=== PATIENT | male | born 1995 | race Hispanic/Latino ===

== ENCOUNTER 2019-02-01 11:22 | Emergency (ER) | payer BC, OTHER ==
[2019-02-01] MEDS ORDERED: LIDOCAINE 1% MPF 5 ML VIAL ONE ×2 (11:48→13:05)
[2019-02-01] MEDS ORDERED: BUPIVACAINE 0.5% PF 10 ML VIAL ONE (11:48)
[2019-02-01] MEDS ORDERED: TETANUS & DIPHTHERIA TOX,ADULT 0.5 ML VIAL ONE (11:49)
--- NOTE | 2019-02-01 12:47 | RAD REPORT ---
EXAM DESCRIPTION: RAD - Hand Right 3 View - 02/01/2019 12:43 pm CLINICAL HISTORY: PAIN COMPARISON: No comparisons FINDINGS: Tuft fracture seen distal aspect of the first digit. No additional fracture or subluxation .
[2019-02-01] MEDS ORDERED: CEFAZOLIN SODIUM 1 GM/VIAL ONE (13:04)
--- NOTE | 2019-02-01 14:12 | ER ---
Nurse's Notes [facility] Name: Donald Roman Age: 23 yrs Sex: Male : 1995 Arrival Date: 02/01/2019 Time: 11:26 Bed 8 Private MD: Unknown, Unknown Diagnosis: Laceration without foreign body of right thumb with damage to nail;Displaced fracture of distal phalanx of right thumb-tuft fracture Presentation: 02/01 11:30 Presenting complaint: Patient states: i smashed my finger last night and the sliding tw2 door on the closet smashed my finger, its throbbing worse and it might need stitches , the nail on my thumb is still there but it is pretty bruised. Presenting complaint: "around 7:15 pm last night this happened". Transition of care: patient was not received from another setting of care. Onset of symptoms was February 01, 2019. Risk Assessment: Do you want to hurt yourself or someone else? Patient reports no desire to harm self or others. Initial Sepsis Screen: Does the patient meet any 2 criteria? No. Patient's initial sepsis screen is negative. Does the patient have a suspected source of infection? No. Patient's initial sepsis screen is negative. Care prior to arrival: None. 11:30 Method Of Arrival: Ambulatory tw2 11:30 Acuity: MUKUND 4 tw2 Triage Assessment: 11:32 General: Appears in no apparent distress. Behavior is calm, cooperative, appropriate tw2 for age. Pain: Complains of pain in dorsal aspect of distal phalanx of right thumb and palmar aspect of distal phalanx of right thumb. Musculoskeletal: Circulation, motion, and sensation intact. Range of motion: intact in all extremities. Injury Description: Crush injury was sustained 12-24 hours ago. Historical: - Allergies: 11:32 No Known Allergies; tw2 - Home Meds: 11:32 None [Active]; tw2 - PMHx: 11:32 None; tw2 - PSHx: 11:32 None; tw2 - Immunization history:: Last tetanus immunization: unknown. - Social history:: Smoking status: . - Ebola Screening: : Patient denies travel to an Ebola-affected area in the 21 days before illness onset. Screenin:50 Abuse screen: Denies threats or abuse. Nutritional screening: No deficits noted. tw2 Tuberculosis screening: No symptoms or risk factors identified. Fall Risk None identified. Assessment: 11:35 General: Appears in no apparent distress. uncomfortable, Behavior is cooperative, bp appropriate for age, anxious. Pain: Complains of pain in right thumb. Neuro: No deficits noted. Cardiovascular: No deficits noted. Respiratory: No deficits noted. GI: No signs and/or symptoms were reported involving the gastrointestinal system. : No signs and/or symptoms were reported regarding the genitourinary system. EENT: No deficits noted. Derm: No deficits noted. Musculoskeletal: No deficits noted. Injury Description: Crush injury sustained to right thumb. 12:58 Reassessment: PROVIDER AT B/S FOR INJURY EVAL. bp 14:00 Reassessment: LAC REPAIR COMPLETED, NO BLEEDING NOTED. bp 14:25 Reassessment: PT D/C HOME AMBULATORY, DX WITH FINGER LACERATION. bp Vital Signs: 11:32 BP 112 / 88; Pulse 102; Resp 17; Temp 97.7(TE); Pulse Ox 97% on R/A; Weight 65.77 kg tw2 (R); Pain 8/10; 12:58 BP 150 / 108; Pulse 72; Resp 16; Pulse Ox 99% ; bp 14:31 BP 154 / 110; Pulse 72; Resp 16; Temp 98; Pulse Ox 97% ; bp ED Course: 11:26 Patient arrived in ED. ag5 11:27 Unknown, Unknown is Private Physician. ag5 11:32 Triage completed. tw2 11:32 Arm band placed on. tw2 11:33 Bed in low position. Call light in reach. tw2 11:42 [facility] kb 11:42 Fernandez Wu MD is Attending Physician. kb 11:45 Ralph Lewis, SHIRA is Primary Nurse. bp 12:43 Hand Right 3 View XRAY In Process Unspecified. EDMS 14:25 Patient did not have IV access during this emergency room visit. bp 14:25 Assist provider with laceration repair on right thumb that was 2.5 cm. or less using bp sutures. Set up tray. Performed by Rosi WYMAN Dressed with Neosporin, Patient tolerated well. Administered Medications: 11:55 Drug: Tetanus-Diphtheria Toxoid Adult 0.5 ml {Net Developer With Wcf: [employer]. Exp: bp 08/26/2020. Lot #: [id number]. } Route: IM; Site: right deltoid; 13:10 Follow up: Response: No adverse reaction bp 11:55 Drug: Lidocaine (2 %) 1 vials {Note: AT B/S FOR PROVIDER.} Volume: 5 ml; Route: bp Infiltration; 11:55 Drug: Marcaine (0.5 %) 1 vials {Note: AT B/S FOR PROVIDER.} Volume: 10 ml; Route: bp Infiltration; 13:10 Drug: Ancef 1 grams Route: IM; Site: right gluteus; bp 14:27 Follow up: Response: No adverse reaction bp Outcome: 14:10 Discharge ordered by . kb 14:26 Discharged to home ambulatory. bp 14:26 Condition: stable 14:26 Discharge instructions given to patient, Instructed on discharge instructions, follow up and referral plans. medication usage, wound care, Demonstrated understanding of instructions, follow-up care, medications, wound care, Prescriptions given X 2. 14:32 Patient left the ED. bp Signatures: Dispatcher [employer] EDMS Rosi Luis, PROCESS SAFETY SPECIALIST-C PROCESS SAFETY SPECIALIST-Zoila Wharton, RN RN tw2 Ralph Lewis, RN RN bp Filipe Myers ag5
--- NOTE | 2019-02-01 14:12 | EDPHYS ---
Physician Documentation [facility] Name: Donald Roman Age: 23 yrs Sex: Male : 1995 Arrival Date: 02/01/2019 Time: 11:26 Bed 8 Private MD: Unknown, Unknown ED Physician Fernandez Wu HPI: 02/01 12:31 This 23 yrs old Male presents to ER via Ambulatory with complaints of Finger kb Injury. 12:32 The patient or guardian reports a contusion, injury, a laceration, irregular, pain, kb swelling, tenderness. The complaints affect the right thumb. Context: The problem was sustained at home, resulted from a crush injury, by a car door. Onset: The symptoms/episode began/occurred last night. Modifying factors: The symptoms are alleviated by nothing, the symptoms are aggravated by nothing. Associated signs and symptoms: The patient has no apparent associated signs or symptoms. Severity of symptoms: At their worst the symptoms were mild, moderate, in the emergency department the symptoms are unchanged. The patient has not experienced similar symptoms in the past. The patient has not recently seen a physician. Historical: - Allergies: 11:32 No Known Allergies; tw2 - Home Meds: 11:32 None [Active]; tw2 - PMHx: 11:32 None; tw2 - PSHx: 11:32 None; tw2 - Immunization history:: Last tetanus immunization: unknown. - Social history:: Smoking status: . - Ebola Screening: : Patient denies travel to an Ebola-affected area in the 21 days before illness onset. ROS: 12:31 Constitutional: Negative for fever, chills, and weight loss, ENT: Negative for injury, kb pain, and discharge, Neck: Negative for injury, pain, and swelling, Cardiovascular: Negative for chest pain, palpitations, and edema, Respiratory: Negative for shortness of breath, cough, wheezing, and pleuritic chest pain, Abdomen/GI: Negative for abdominal pain, nausea, vomiting, diarrhea, and constipation, Back: Negative for injury and pain, Neuro: Negative for headache, weakness, numbness, tingling, and seizure. 12:31 MS/extremity: Positive for injury or acute deformity, contusion, laceration, pain, swelling, tenderness, of the dorsal aspect of distal phalanx of right thumb. Exam: 12:28 Constitutional: This is a well developed, well nourished patient who is awake, alert, kb and in no acute distress. Head/Face: Normocephalic, atraumatic. ENT: Nares patent. No nasal discharge, no septal abnormalities noted. Tympanic membranes are normal and external auditory canals are clear. Oropharynx with no redness, swelling, or masses, exudates, or evidence of obstruction, uvula midline. Mucous membranes moist. Neck: Trachea midline, no thyromegaly or masses palpated, and no cervical lymphadenopathy. Supple, full range of motion without nuchal rigidity, or vertebral point tenderness. No Meningismus. Chest/axilla: Normal chest wall appearance and motion. Nontender with no deformity. No lesions are appreciated. Cardiovascular: Regular rate and rhythm with a normal S1 and S2. No gallops, murmurs, or rubs. Normal PMI, no JVD. No pulse deficits. Respiratory: Lungs have equal breath sounds bilaterally, clear to auscultation and percussion. No rales, rhonchi or wheezes noted. No increased work of breathing, no retractions or nasal flaring. Abdomen/GI: Soft, non-tender, with normal bowel sounds. No distension or tympany. No guarding or rebound. No evidence of tenderness throughout. Neuro: Awake and alert, GCS 15, oriented to person, place, time, and situation. Cranial nerves II-XII grossly intact. Motor strength 5/5 in all extremities. Sensory grossly intact. Cerebellar exam normal. Normal gait. 12:28 Musculoskeletal/extremity: Extremities: grossly normal except: noted in the dorsal aspect of distal phalanx of right thumb: laceration, pain, swelling, tenderness, ROM: intact in all extremities, Circulation is intact in all extremities. Vital Signs: 11:32 BP 112 / 88; Pulse 102; Resp 17; Temp 97.7(TE); Pulse Ox 97% on R/A; Weight 65.77 kg tw2 (R); Pain 8/10; 12:58 BP 150 / 108; Pulse 72; Resp 16; Pulse Ox 99% ; bp 14:31 BP 154 / 110; Pulse 72; Resp 16; Temp 98; Pulse Ox 97% ; bp Procedures: 11:57 Nerve block: (digital) of right thumb Medication: Lidocaine 1% without epinephrine kb Marcaine 0.5%, Amount: 4 mls were injected, Effect: the patient has resolution of the pain, Set up for procedure. Performed by Rosi WYMAN Patient tolerated well. Laceration: 14:04 Wound Repair of 2cm ( 0.8in ) subcutaneous laceration to right thumb. Irregularly kb shaped.. Distal neuro/vascular/tendon intact. Anesthesia: Digital block administered with 1% lidocaine. Wound prep: Extensive cleansing with hibiclenz by me, Wound irrigation with saline by me, Wound explored, nail lifted to evaluate nail bed. 4 sutures used to repair nail bed, 3 sutures on outside of nail, figure 8 placed to secure nail in place afterwards. Skin closed with 1-0 Prolene using simple sutures and sterile technique. Dressed with Neosporin, finger splint. Patient tolerated well. MDM: 11:42 Patient medically screened. kb 11:57 Data reviewed: vital signs, nurses notes. Data interpreted: Pulse oximetry: on room air kb is 97 %. Interpretation: normal. ED course: soaking pt's thumb in 50/50 mixture of betadine and NS at this time. 14:09 Counseling: I had a detailed discussion with the patient and/or guardian regarding: the kb historical points, exam findings, and any diagnostic results supporting the discharge/admit diagnosis, radiology results, the need for outpatient follow up, a hand specialist, to return to the emergency department if symptoms worsen or persist or if there are any questions or concerns that arise at home. 1112 11:51 Order name: Hand Right 3 View XRAY; Complete Time: 12:52 kb Administered Medications: 11:55 Drug: Tetanus-Diphtheria Toxoid Adult 0.5 ml {Blend Plant Operator: [employer]. Exp: bp 08/26/2020. Lot #: [id number]. } Route: IM; Site: right deltoid; 13:10 Follow up: Response: No adverse reaction bp 11:55 Drug: Lidocaine (2 %) 1 vials {Note: AT B/S FOR PROVIDER.} Volume: 5 ml; Route: bp Infiltration; 11:55 Drug: Marcaine (0.5 %) 1 vials {Note: AT B/S FOR PROVIDER.} Volume: 10 ml; Route: bp Infiltration; 13:10 Drug: Ancef 1 grams Route: IM; Site: right gluteus; bp 14:27 Follow up: Response: No adverse reaction bp Disposition: 15:39 Co-signature as Attending Physician, Fernandez Wu MD. rn Disposition: 02/01/19 14:10 Discharged to Home. Impression: Laceration without foreign body of right thumb with damage to nail, Displaced fracture of distal phalanx of right thumb - tuft fracture. - Condition is Stable. - Discharge Instructions: Finger Fracture, [id number], Laceration Care, Adult, [id number], Nail Bed Laceration. - Prescriptions for Augmentin 875- 125 mg Oral Tablet - take 1 tablet by ORAL route every 12 hours for 10 days; 20 tablet. Tylenol- Codeine #3 300-30 mg Oral Tablet - take 2 tablets by ORAL route every 6 hours As needed; 16 tablet. - Medication Reconciliation Form, Thank You Letter, Antibiotic Education, Prescription Opioid Use, Work release form form. - Follow up: Emergency Department; When: As needed; Reason: Worsening of condition. Follow up: Private Physician; When: 2 - 3 days; Reason: Recheck today's complaints, Continuance of care, Re-evaluation by your physician. Signatures: Dispatcher [employer] EDUT Rosi Luis, DIESEL TRUCK DRIVER-C DIESEL TRUCK DRIVER-Ckb Fernandez Wu MD MD rn Wise, Tara, RN RN 2 Ralph Lewis RN RN bp Corrections: (The following items were deleted from the chart) 14:32 14:10 02/01/2019 14:10 Discharged to Home. Impression: Laceration without foreign body bp of right thumb with damage to nail; Displaced fracture of distal phalanx of right thumb - tuft fracture. Condition is Stable. Forms are Work release form, Medication Reconciliation Form, Thank You Letter, Antibiotic Education, Prescription Opioid Use. Follow up: Emergency Department; When: As needed; Reason: Worsening of condition. Follow up: Private Physician; When: 2 - 3 days; Reason: Recheck today's complaints, Continuance of care, Re-evaluation by your physician. kb
[2019-02-01 15:13] VITALS: BP 154/110; TEMP 98; O2SAT 97
== END 2019-02-01 14:32 | disposition home or self-care (01) ==
LOC: ER 11:22
PROC: 0JQJ0ZZ Repair Right Hand Subcutaneous Tissue and Fascia, Open Approach (ICD-10-PCS; principal; 2019-02-01)
DX: S61.111A Laceration without foreign body of right thumb with damage to nail, initial encounter (principal); S62.521A Displaced fracture of distal phalanx of right thumb, initial encounter for closed fracture; W23.0XXA Caught, crushed, jammed, or pinched between moving objects, initial encounter; Y93.9 Activity, unspecified; Y92.9 Unspecified place or not applicable; Z23 Encounter for immunization
CPT/HCPCS: 73130; 90471; 90714; 64450; 96372; 99284; 12001; J0690

== ENCOUNTER 2019-03-20 09:05 | Emergency (ER) | payer BC ==
[2019-03-20] MEDS ORDERED: HYDROCODONE/APAP 10/325 TAB ONE (10:19)
--- NOTE | 2019-03-20 10:35 | ER ---
Nurse's Notes [facility] Name: Donald Roman Age: 23 yrs Sex: Male : 1995 Arrival Date: 03/20/2019 Time: 09:07 Bed 16 Private MD: Diagnosis: Pain in left knee-Possible internal derangement of left knee Presentation: 03/20 09:15 Presenting complaint: Patient states: L knee pain after knee gave out while jumping on ss a trampoline last night. Transition of care: patient was not received from another setting of care. Onset of symptoms was March 19, 2019. Risk Assessment: Do you want to hurt yourself or someone else? Patient reports no desire to harm self or others. Initial Sepsis Screen: Does the patient meet any 2 criteria? No. Patient's initial sepsis screen is negative. Does the patient have a suspected source of infection? No. Patient's initial sepsis screen is negative. Care prior to arrival: None. 09:15 Method Of Arrival: Ambulatory ss 09:15 Acuity: MUKUND 4 ss Triage Assessment: 09:00 General: Appears in no apparent distress. uncomfortable, Behavior is calm, cooperative. ae4 Historical: - Allergies: 09:16 No Known Allergies; ss - Home Meds: 09:16 None [Active]; ss - PMHx: 09:16 None; ss - PSHx: 09:16 None; ss - Immunization history:: Adult Immunizations up to date. - Social history:: Smoking status: Patient/guardian denies using tobacco. - Ebola Screening: : Patient denies exposure to infectious person Patient denies travel to an Ebola-affected area in the 21 days before illness onset. Screenin:28 Abuse screen: Denies threats or abuse. Nutritional screening: No deficits noted. ae4 Tuberculosis screening: No symptoms or risk factors identified. Fall Risk None identified. Assessment: 09:00 General: Appears in no apparent distress. uncomfortable, Behavior is calm, cooperative. ae4 Pain: Complains of pain in left knee and left crawford Pain currently is 8 out of 10 on a pain scale. Neuro: Level of Consciousness is awake, alert, obeys commands, Oriented to person, place, time, situation, Appropriate for age. Cardiovascular: Patient's skin is warm and dry. Respiratory: Airway is patent Respiratory effort is even, unlabored, Respiratory pattern is regular, symmetrical. GI: No signs and/or symptoms were reported involving the gastrointestinal system. : No signs and/or symptoms were reported regarding the genitourinary system. EENT: No signs and/or symptoms were reported regarding the EENT system. Derm: No signs and/or symptoms reported regarding the dermatologic system. No visible bruising. Musculoskeletal: Swelling present in posterior aspect of left knee. 10:10 Reassessment: Provider at bedside discussing results and plan of care. ae4 Vital Signs: 09:16 BP 149 / 84; Pulse 92; Resp 15; Temp 98.3(O); Pulse Ox 97% on R/A; Weight 72.57 kg; ss Height 5 ft. 7 in. (170.18 cm); Pain 9/10; 09:16 Body Mass Index 25.06 (72.57 kg, 170.18 cm) ED Course: 09:07 Patient arrived in ED. as 09:11 River Zapien, SHIRA is Primary Nurse. ae4 09:12 Floyd Zavala NP is PHCP. pm1 09:13 Bandar Mahmood MD is Attending Physician. pm1 09:15 Call light in reach. Side rails up X 1. Adult w/ patient. Pulse ox on. ae4 09:16 Triage completed. ss 09:16 Arm band placed on right wrist. ss 09:40 XRAY Knee LEFT 3 view In Process Unspecified. EDMS 10:34 Nawaf Harman MD is Referral Physician. pm1 10:41 No provider procedures requiring assistance completed. Patient did not have IV access ss during this emergency room visit. Administered Medications: 10:25 Drug: [place] 10 mg-325 mg 1 tabs Route: PO; ae4 19:29 Follow up: Response: Medication administered at discharge.; Father of patient at ae4 bedside states he is driving patient home. Intake: Outcome: 10:34 Discharge ordered by . pm1 10:41 Discharged to home with crutches. ss 10:41 Condition: good 10:41 Discharge instructions given to patient, family, Instructed on discharge instructions, follow up and referral plans. medication usage, Demonstrated understanding of instructions, follow-up care, medications, Prescriptions given X 1. 10:42 Patient left the ED. ss Signatures: Dispatcher [employer] EDME Tiara Sevilla Shelby, RN RN ss Floyd Zavala, PAYROLL ADMINISTRATOR PAYROLL ADMINISTRATOR pm1 River Zapien, SHRIA RN ae4
--- NOTE | 2019-03-20 10:35 | RAD REPORT ---
EXAM DESCRIPTION: RAD - Knee Left 3 View - 03/20/2019 9:40 am CLINICAL HISTORY: Left knee pain status post injury FINDINGS: No fracture or dislocation is seen.
--- NOTE | 2019-03-20 10:36 | EDPHYS ---
Physician Documentation [facility] Name: Donald Roman Age: 23 yrs Sex: Male : 1995 Arrival Date: 03/20/2019 Time: 09:07 Bed 16 Private MD: ED Physician Bandar Mahmood HPI: 03/20 10:15 This 23 yrs old Male presents to ER via Ambulatory with complaints of Left pm1 Knee Pain. 10:15 The patient presents with pain, that is acute. The complaints affect the left knee. pm1 Context: The problem was sustained [employer], the patient can partially bear weight, using pair of crutches, Problem is a result from a previous injury: No. Onset: The symptoms/episode began/occurred last night. Modifying factors: The symptoms are alleviated by remaining still, the symptoms are aggravated by weight bearing, bending knee. Associated signs and symptoms: Pertinent negatives calf tenderness, fever, numbness, swelling, tingling. Treatment prior to arrival includes: over the counter medications, NSAIDS. Severity of symptoms: in the emergency department the symptoms are unchanged. The patient has not experienced similar symptoms in the past. Patient jumping at [employer] and left knee buckled when he landed. Historical: - Allergies: 09:16 No Known Allergies; ss - Home Meds: 09:16 None [Active]; ss - PMHx: 09:16 None; ss - PSHx: 09:16 None; ss - Immunization history:: Adult Immunizations up to date. - Social history:: Smoking status: Patient/guardian denies using tobacco. - Ebola Screening: : Patient denies exposure to infectious person Patient denies travel to an Ebola-affected area in the 21 days before illness onset. ROS: 10:15 Constitutional: Negative for fever, chills, and weight loss, Neck: Negative for injury, pm1 pain, and swelling, Cardiovascular: Negative for chest pain, palpitations, and edema, Respiratory: Negative for shortness of breath, cough, wheezing, and pleuritic chest pain, Back: Negative for injury and pain. 10:15 Skin: Negative for injury, rash, and discoloration, Neuro: Negative for headache, weakness, numbness, tingling, and seizure. 10:15 MS/extremity: Positive for pain, swelling, of the left knee. Exam: 10:15 Constitutional: This is a well developed, well nourished patient who is awake, alert, pm1 and in no acute distress. Head/Face: Normocephalic, atraumatic. Neck: Trachea midline, no thyromegaly or masses palpated, and no cervical lymphadenopathy. Supple, full range of motion without nuchal rigidity, or vertebral point tenderness. No Meningismus. Chest/axilla: Normal chest wall appearance and motion. Nontender with no deformity. No lesions are appreciated. Cardiovascular: Regular rate and rhythm with a normal S1 and S2. No gallops, murmurs, or rubs. Normal PMI, no JVD. No pulse deficits. Respiratory: Lungs have equal breath sounds bilaterally, clear to auscultation and percussion. No rales, rhonchi or wheezes noted. No increased work of breathing, no retractions or nasal flaring. Back: No spinal tenderness. No costovertebral tenderness. Full range of motion. Skin: Warm, dry with normal turgor. Normal color with no rashes, no lesions, and no evidence of cellulitis. 10:15 Musculoskeletal/extremity: Extremities: grossly normal except: noted in the left knee: Tenderness and swelling to medial aspect of left knee. valgus and varus stress to left knee cause pain to medial aspect of left knee, Sensation intact. 10:15 Neuro: Orientation: is normal, Motor: is normal, moves all fours. Vital Signs: 09:16 BP 149 / 84; Pulse 92; Resp 15; Temp 98.3(O); Pulse Ox 97% on R/A; Weight 72.57 kg; ss Height 5 ft. 7 in. (170.18 cm); Pain 9/10; 09:16 Body Mass Index 25.06 (72.57 kg, 170.18 cm) ss MDM: 09:15 Patient medically screened. [facility] 10:33 Data reviewed: vital signs. Data interpreted: Pulse oximetry: on room air is 97 %. pm1 Interpretation: normal. Counseling: I had a detailed discussion with the patient and/or guardian regarding: the historical points, exam findings, and any diagnostic results supporting the discharge/admit diagnosis, radiology results, the need for outpatient follow up, for definitive care, a orthopedic surgeon, to return to the emergency department if symptoms worsen or persist or if there are any questions or concerns that arise at home. 03/20 09:17 Order name: XRAY Knee LEFT 3 view; Complete Time: 10:42 ss 03/20 10:15 Order name: Knee Immobilizer; Complete Time: 10:32 ae4 Administered Medications: 10:25 Drug: [place] 10 mg-325 mg 1 tabs Route: PO; ae4 19:29 Follow up: Response: Medication administered at discharge.; Father of patient at ae4 bedside states he is driving patient home. Disposition: 03/20/19 10:34 Discharged to Home. Impression: Pain in left knee - Possible internal derangement of left knee. - Condition is Stable. - Discharge Instructions: Crutch Use, Knee Immobilizer, Knee Pain. - Prescriptions for Tylenol- Codeine #3 300-30 mg Oral Tablet - take 2 tablets by ORAL route every 6 hours As needed; 20 tablet. - Medication Reconciliation Form, Thank You Letter, Antibiotic Education, Prescription Opioid Use form. - Follow up: Emergency Department; When: As needed; Reason: Worsening of condition. Follow up: Nawaf Harman MD; When: 2 - 3 days; Reason: Recheck today's complaints, Continuance of care, Re-evaluation by your physician. - Problem is new. - Symptoms have improved. Addendum: 03/28/2019 10:58 Co-signature as Attending Physician, Bandar Mahmood MD I agree with the assessment and c zamora plan of care. Signatures: Dispatcher [employer] [facility] Bandar Mahmood MD MD cha Smirch, Shelby, RN RN ss Floyd Zavala, KORI TREER pm1 River Zapien RN RN ae4 Corrections: (The following items were deleted from the chart) 03/20 10:42 10:34 03/20/2019 10:34 Discharged to Home. Impression: Pain in left knee - Possible ss internal derangement of left knee. Condition is Stable. Forms are Medication Reconciliation Form, Thank You Letter, Antibiotic Education, Prescription Opioid Use. Follow up: Emergency Department; When: As needed; Reason: Worsening of condition. Follow up: Dr. Nawaf Harman; When: 2 - 3 days; Reason: Recheck today's complaints, Continuance of care, Re-evaluation by your physician. Problem is new. Symptoms have improved. pm1
[2019-03-20 10:47] VITALS: BP 149/84; TEMP 98.3; O2SAT 97
== END 2019-03-20 10:42 | disposition home or self-care (01) ==
LOC: ER 09:05
DX: M25.562 Pain in left knee (principal)
CPT/HCPCS: 99284